=== PATIENT | female | born 1985 | race Caucasian/White ===

== ENCOUNTER 2020-08-27 23:21 | Emergency (ER) | payer OTHER ==
[2020-08-28] MEDS ORDERED: Ketorolac Tromethamine 30 MG/ML VIAL ONE (00:20)
[2020-08-28] MEDS ORDERED: Lidocaine 1% w/Epinephrine 1:100K 20 ML VIAL ONE (00:40)
[2020-08-28] MEDS ORDERED: Benzocaine 20% Spray 60 ML CAN ONE (00:40)
== END 2020-08-28 01:55 | disposition home or self-care (01) ==
LOC: ERS 23:21
DX: J36 Peritonsillar abscess (principal); E10.9 Type 1 diabetes mellitus without complications; F17.210 Nicotine dependence, cigarettes, uncomplicated
CPT/HCPCS: 87070; 87205; 96374; J1885